=== PATIENT | male | born 1970 | race Caucasian/White ===

== ENCOUNTER 2022-06-18 19:33 | Emergency (ER) | payer BC, OTHER ==
[2022-06-18] MEDS ORDERED: Ketorolac Tromethamine 30 MG/ML VIAL ONE (20:05)
== END 2022-06-18 21:10 | disposition home or self-care (01) ==
LOC: BURERS 19:33
DX: S29.011A Strain of muscle and tendon of front wall of thorax, initial encounter (principal); E78.00 Pure hypercholesterolemia, unspecified
CPT/HCPCS: 71046; 85379; 93005; 96374; J1885